=== PATIENT | female | born 1960 | race Two or more races ===

== ENCOUNTER 2020-03-23 20:25 | Inpatient (IN) | payer MEDICAID, OTHER ==
[~2020-03-23] VITALS: Ht 152.4 cm; Wt 131.5 kg
[2020-03-24] VITALS: BP 124/77
[2020-03-24 03:12] LABS: Basophils # (auto) 0 10 ^3/uL (0-0.2); Basophils % (auto) 0.3 % (0.0-2.0); Eosinophils # (auto) 0 10 ^3/uL (0-0.8); Eosinophils % (auto) 0.3 % (0.0-7.0); Hematocrit 39.1 % (36.0-46.0); Lymphocytes # (auto) 0.8 10 ^3/uL (0.4-5.4); Lymphocytes % (auto) 15.3 % (10.0-50.0); Mean Corpuscular Hemoglobin 27.3 pg (28.0-32.0); Mean Corpuscular Hgb Conc. 33.2 g/dL (32.0-36.0); Mean Corpuscular Volume 82.4 fL (80.0-100.0); Monocytes # (auto) 0.3 10 ^3/uL (0-1.3); Monocytes % (auto) 6.3 % (0.0-12.0); Neutrophils % (auto) 77.8 % (37.0-80.0); Nucleated Red Blood Cells % 0.1 %; Red Blood Cells 4.75 10^6/uL (4.0-5.20); Red Cell Distribution Width 16.6 % (11.8-14.3); White Blood Cell 5.1 10^3/uL (4.4-10.8)
[2020-03-24 03:29] LABS: Alanine Aminotransferase 56 U/L (13-56); Albumin 3.1 g/dL (3.4-5.0); Anion Gap 5 (5-15); Blood Urea Nitrogen 8 mg/dL (7-18); Calcium 8.1 mg/dL (8.5-10.1); Carbon Dioxide 28 mmol/L (21-32); Chloride 104 mmol/L (98-107); Glucose 155 mg/dL (74-106); Magnesium 2.1 mg/dL (1.6-2.6); Potassium 4.3 mmol/L (3.5-5.1); Sodium 137 mmol/L (136-145)
[2020-03-24 03:38] LABS: Alkaline Phosphatase 159 U/L (45-117); Aspartate Aminotransferase 76 U/L (15-37); BUN/Creatinine Ratio 12.7; Bilirubin, Total 0.8 mg/dL (0.2-1.0); GFR African American 125 mL/min; GFR Non-African American 103 mL/min; Lactate Dehydrogenase 440 U/L (84-246); Total Protein 7.4 g/dL (6.4-8.2)
[2020-03-24] MEDS ORDERED: AZITHROMYCIN 500MG/ 250ML 250 ML IV ONE (04:30)
[2020-03-24] MEDS ORDERED: DexAMETHasone INJECTION 10 MG in D5W 5% 50 ML IV ONE (04:30)
[2020-03-24] MEDS ORDERED: DexAMETHasone SOD PHOS 4 MG/1ML SDV INJ ONE (04:39)
[2020-03-24] MEDS ORDERED: HYDROcodone-ACET 5/325MG TAB PO PRN (08:30)
[2020-03-24] MEDS ORDERED: ONDANSETRON HCL 4 MG/2 ML VIAL IV PRN (08:30)
[2020-03-24] MEDS ORDERED: ACETAMINOPHEN 500 MG TAB PO PRN (08:30)
[2020-03-24] MEDS: SODIUM CHLORIDE 0.9% 1,000 ML IV SCH (08:30)
[2020-03-24] MEDS ORDERED: NITROGLYCERIN 0.4 MG SL TAB SL PRN (08:30)
[2020-03-24] MEDS ORDERED: MORPHINE SULFATE INJECTION 2 MG/ML SYRG IV PRN (08:30)
[2020-03-24] MEDS: MULTIPLE VITAMIN TAB PO SCH (10:00)
[2020-03-24] MEDS: DOXYCYCLINE 100MG/250ML 250 ML IV SCH ×2 (10:00→23:02)
[2020-03-24] MEDS: ZINC SULFATE 220mg CAP or TAB PO SCH (10:00)
[2020-03-24] MEDS: ASCORBIC ACID 1,000 MG TAB PO SCH (10:00)
[2020-03-24] MEDS: FAMOTIDINE (10MG/ML) 2ML VL IV SCH ×2 (10:00→23:02)
[2020-03-24] MEDS: ENOXAPARIN SOD 40 MG/0.4 ML SYRINGE SC SCH ×2 (10:00→23:02)
[2020-03-24] MEDS: CHOLECALCIFEROL (VITD3) 2,000 UNIT CAP/TAB PO SCH (10:00)
[2020-03-24] MEDS: BUDESONIDE (INHALATION) 180 MCG IH IN SCH ×3 (10:00→20:22)
[2020-03-24 11:24] LABS: Basophils # (auto) 0 10 ^3/uL (0-0.2); Eosinophils # (auto) 0 10 ^3/uL (0-0.8); Hematocrit 38.7 % (36.0-46.0); Hemoglobin 13.4 g/dL (12.2-16.2); Lymphocytes # (auto) 0.6 10 ^3/uL (0.4-5.4); Lymphocytes % (auto) 9.8 % (10.0-50.0); Mean Corpuscular Hemoglobin 28.3 pg (28.0-32.0); Mean Corpuscular Hgb Conc. 34.7 g/dL (32.0-36.0); Mean Corpuscular Volume 81.6 fL (80.0-100.0); Monocytes # (auto) 0.2 10 ^3/uL (0-1.3); Neutrophils # (auto) 5.3 10 ^3/uL (1.6-8.6); Neutrophils % (auto) 86.2 % (37.0-80.0); Nucleated Red Blood Cells % 0.1 %; Red Blood Cells 4.75 10^6/uL (4.0-5.20); Red Cell Distribution Width 16.3 % (11.8-14.3); White Blood Cell 6.1 10^3/uL (4.4-10.8)
[2020-03-24 11:32] LABS: Potassium 3.8 mmol/L (3.5-5.1)
[2020-03-24 11:39] LABS: Albumin 3.2 g/dL (3.4-5.0); BUN/Creatinine Ratio 10.5; Bilirubin, Total 0.7 mg/dL (0.2-1.0); Calcium 8.4 mg/dL (8.5-10.1); Magnesium 2.2 mg/dL (1.6-2.6); Total Protein 8.1 g/dL (6.4-8.2)
[2020-03-24] MEDS: ALBUTEROL SULF HFA 90MCG INH 200DOSE IN PRN ×2 (11:47→20:22)
[2020-03-24 12:45] VITALS: BP 126/70
[2020-03-24] MEDS ORDERED: LEVO75TA6 PO (13:02)
[2020-03-24 15:59] VITALS: BP 129/79
[2020-03-24] MEDS ORDERED: REMDESIVIR PER PHARMACY 0 ML IV SCH (20:45)
[2020-03-24 23:03] LABS: Urine Bacteria FEW /hpf (None Seen); Urine Blood 3+ /uL (Negative); Urine Specific Gravity 1.012 (1.001-1.035); Urine WBC 4 /hpf (0 - 5)
[2020-03-24] MEDS ORDERED: TEMAZEPAM 15 MG CAP PO ONE (23:30)
[2020-03-25] VITALS: BP 124/77
[2020-03-25] MEDS: SODIUM CHLORIDE 0.9% 1,000 ML IV SCH ×2 (01:10→10:05)
[2020-03-25] MEDS: LEVOTHYROXINE SODIUM 25 MCG TAB PO SCH (05:44)
[2020-03-25 08:00] VITALS: BP 123/65
[2020-03-25 08:27] LABS: Basophils # (auto) 0 10 ^3/uL (0-0.2); Basophils % (auto) 0.1 % (0.0-2.0); Eosinophils # (auto) 0 10 ^3/uL (0-0.8); Hematocrit 37.2 % (36.0-46.0); Hemoglobin 12.5 g/dL (12.2-16.2); Lymphocytes # (auto) 0.8 10 ^3/uL (0.4-5.4); Mean Corpuscular Hemoglobin 27.3 pg (28.0-32.0); Mean Corpuscular Hgb Conc. 33.6 g/dL (32.0-36.0); Mean Corpuscular Volume 81.5 fL (80.0-100.0); Monocytes # (auto) 0.5 10 ^3/uL (0-1.3); Monocytes % (auto) 7.3 % (0.0-12.0); Neutrophils # (auto) 5.2 10 ^3/uL (1.6-8.6); Neutrophils % (auto) 79.6 % (37.0-80.0); Red Blood Cells 4.56 10^6/uL (4.0-5.20); Red Cell Distribution Width 16.3 % (11.8-14.3); White Blood Cell 6.5 10^3/uL (4.4-10.8)
[2020-03-25] MEDS: BUDESONIDE (INHALATION) 180 MCG IH IN SCH ×2 (08:28→23:18)
[2020-03-25] MEDS: ALBUTEROL SULF HFA 90MCG INH 200DOSE IN PRN ×2 (08:28→23:18)
[2020-03-25 08:47] LABS: Calcium 8.5 mg/dL (8.5-10.1); Potassium 3.5 mmol/L (3.5-5.1)
[2020-03-25 08:58] LABS: Albumin 2.9 g/dL (3.4-5.0); BUN/Creatinine Ratio 16.4; Bilirubin, Total 0.8 mg/dL (0.2-1.0); Total Protein 7.7 g/dL (6.4-8.2)
[2020-03-25] MEDS: ASCORBIC ACID 1,000 MG TAB PO SCH (10:03)
[2020-03-25] MEDS: MULTIPLE VITAMIN TAB PO SCH (10:03)
[2020-03-25] MEDS: DOXYCYCLINE 100MG/250ML 250 ML IV SCH ×2 (10:03→22:30)
[2020-03-25] MEDS: ZINC SULFATE 220mg CAP or TAB PO SCH (10:03)
[2020-03-25] MEDS: DexAMETHasone SOD PHOS 10MG/1ML VIAL INJ IV SCH (10:03)
[2020-03-25] MEDS: FAMOTIDINE (10MG/ML) 2ML VL IV SCH ×2 (10:03→22:30)
[2020-03-25] MEDS: ENOXAPARIN SOD 40 MG/0.4 ML SYRINGE SC SCH ×2 (10:04→22:30)
[2020-03-25] MEDS: CHOLECALCIFEROL (VITD3) 2,000 UNIT CAP/TAB PO SCH (10:05)
[2020-03-25] MEDS ORDERED: REMDESIVIR 200 MG in NS 210ml LOADING DOSE ADULT IV ONE (15:00)
[2020-03-25] MEDS ORDERED: POTASSIUM CHL 10 Meq TABLET PO ONE (15:45)
[2020-03-25] MEDS ORDERED: FUROSEMIDE 40 MG/4 ML VIAL IV ONE (15:45)
[2020-03-25 16:30] VITALS: BP 107/65
[2020-03-25] MEDS: ERGOCALCIFEROL 50,000 UNIT(1.25MG) CAP PO SCH (18:00)
[2020-03-25] MEDS: FUROSEMIDE 40 MG/4 ML VIAL IV SCH (18:00)
[2020-03-25] MEDS: POTASSIUM CHL 10 Meq TABLET PO SCH (22:30)
[2020-03-26] VITALS: BP 127/77
[2020-03-26 00:09] VITALS: BP 127/77
[2020-03-26 06:33] LABS: Potassium 3.5 mmol/L (3.5-5.1)
[2020-03-26] MEDS: FUROSEMIDE 40 MG/4 ML VIAL IV SCH ×2 (06:35→18:37)
[2020-03-26] MEDS: LEVOTHYROXINE SODIUM 25 MCG TAB PO SCH (06:44)
[2020-03-26 06:53] LABS: BUN/Creatinine Ratio 19.2; Bilirubin, Total 0.8 mg/dL (0.2-1.0); CRP High Sensitivity 10.1 mg/dL (< 0.3); Calcium 8.6 mg/dL (8.5-10.1); Magnesium 2.3 mg/dL (1.6-2.6); Total Protein 7.9 g/dL (6.4-8.2)
[2020-03-26] MEDS: BUDESONIDE (INHALATION) 180 MCG IH IN SCH ×2 (07:02→08:42)
[2020-03-26 08:00] VITALS: BP 119/72
[2020-03-26] MEDS: ALBUTEROL SULF HFA 90MCG INH 200DOSE IN PRN (08:42)
[2020-03-26] MEDS: DexAMETHasone SOD PHOS 10MG/1ML VIAL INJ IV SCH (09:45)
[2020-03-26] MEDS: FAMOTIDINE (10MG/ML) 2ML VL IV SCH ×2 (09:45→20:42)
[2020-03-26] MEDS: CHOLECALCIFEROL (VITD3) 2,000 UNIT CAP/TAB PO SCH (09:45)
[2020-03-26] MEDS: POTASSIUM CHL 10 Meq TABLET PO SCH ×2 (09:45→20:42)
[2020-03-26] MEDS: ZINC SULFATE 220mg CAP or TAB PO SCH (09:45)
[2020-03-26] MEDS: ASCORBIC ACID 1,000 MG TAB PO SCH (09:46)
[2020-03-26] MEDS: MULTIPLE VITAMIN TAB PO SCH (09:46)
[2020-03-26] MEDS: DOXYCYCLINE 100MG/250ML 250 ML IV SCH ×2 (09:46→20:43)
[2020-03-26] MEDS: ENOXAPARIN SOD 40 MG/0.4 ML SYRINGE SC SCH ×2 (09:47→20:42)
[2020-03-26] MEDS: REMDESIVIR 100mg 100 MG in SODIUM CHL 0.9% 230 ML IV SCH (15:03)
[2020-03-26 16:00] VITALS: BP 130/77
[2020-03-26] MEDS ORDERED: methylPREDNISolone SOD SUCC 40 MG/ML VL IV ONE (16:30)
[2020-03-26] MEDS ORDERED: ACETAMINOPHEN 650 mg PER 20.3 mL UD PO ONE (16:30)
[2020-03-26] MEDS ORDERED: diphenhdrAMINE HCL 50 MG/1 ML VL IV ONE (16:30)
[2020-03-26] MEDS ORDERED: TOCILIZUMAB 400 MG in SODIUM CHL 0.9% 80 ML IV ONE (17:00)
[2020-03-27 00:06] VITALS: BP 140/73
[2020-03-27] MEDS: FUROSEMIDE 40 MG/4 ML VIAL IV SCH ×3 (05:23→17:23)
[2020-03-27] MEDS: LEVOTHYROXINE SODIUM 25 MCG TAB PO SCH (05:24)
[2020-03-27] MEDS: ALBUTEROL SULF HFA 90MCG INH 200DOSE IN PRN ×2 (07:02→20:26)
[2020-03-27] MEDS: BUDESONIDE (INHALATION) 180 MCG IH IN SCH ×2 (07:02→20:26)
[2020-03-27 07:59] LABS: Potassium 3.5 mmol/L (3.5-5.1)
[2020-03-27 08:00] VITALS: BP 116/64
[2020-03-27 08:06] LABS: Albumin 3.1 g/dL (3.4-5.0); BUN/Creatinine Ratio 19.7; Calcium 8.4 mg/dL (8.5-10.1); Total Protein 7.8 g/dL (6.4-8.2)
[2020-03-27] MEDS: FAMOTIDINE (10MG/ML) 2ML VL IV SCH ×2 (09:03→20:52)
[2020-03-27] MEDS: ZINC SULFATE 220mg CAP or TAB PO SCH (09:04)
[2020-03-27] MEDS: POTASSIUM CHL 10 Meq TABLET PO SCH ×2 (09:04→20:52)
[2020-03-27] MEDS: ASCORBIC ACID 1,000 MG TAB PO SCH (09:04)
[2020-03-27] MEDS: MULTIPLE VITAMIN TAB PO SCH (09:04)
[2020-03-27] MEDS: CHOLECALCIFEROL (VITD3) 2,000 UNIT CAP/TAB PO SCH (09:04)
[2020-03-27] MEDS: ENOXAPARIN SOD 40 MG/0.4 ML SYRINGE SC SCH ×2 (09:04→20:53)
[2020-03-27] MEDS: DOXYCYCLINE 100MG/250ML 250 ML IV SCH ×2 (09:32→21:16)
[2020-03-27] MEDS ORDERED: diphenhdrAMINE HCL 50 MG/1 ML VL IV ONE (11:30)
[2020-03-27] MEDS ORDERED: ACETAMINOPHEN 650 mg PER 20.3 mL UD PO ONE (11:30)
[2020-03-27] MEDS ORDERED: methylPREDNISolone SOD SUCC 40 MG/ML VL IV ONE (11:30)
[2020-03-27] MEDS ORDERED: TOCILIZUMAB 400 MG in SODIUM CHL 0.9% 80 ML IV ONE (12:00)
[2020-03-27] MEDS ORDERED: IVERMECTIN 3 MG TAB PO SCH (15:00)
[2020-03-27] MEDS: REMDESIVIR 100mg 100 MG in SODIUM CHL 0.9% 230 ML IV SCH (15:17)
[2020-03-27 16:00] VITALS: BP 147/81
[2020-03-27] MEDS: IVERMECTIN 3 MG TAB PO SCH (17:22)
[2020-03-28] VITALS (7 sets, daily range): BP systolic 109–131; BP diastolic 62–90
[2020-03-28] MEDS: FUROSEMIDE 40 MG/4 ML VIAL IV SCH ×2 (06:20→17:36)
[2020-03-28] MEDS: LEVOTHYROXINE SODIUM 25 MCG TAB PO SCH (06:23)
[2020-03-28] MEDS: IVERMECTIN 3 MG TAB PO SCH (06:25)
[2020-03-28] MEDS: ALBUTEROL SULF HFA 90MCG INH 200DOSE IN PRN ×2 (06:42→22:16)
[2020-03-28] MEDS: BUDESONIDE (INHALATION) 180 MCG IH IN SCH ×2 (06:42→22:16)
[2020-03-28 08:06] LABS: Basophils # (auto) 0 10 ^3/uL (0-0.2); Basophils % (auto) 0.1 % (0.0-2.0); Eosinophils # (auto) 0 10 ^3/uL (0-0.8); Eosinophils % (auto) 0.2 % (0.0-7.0); Hematocrit 39.9 % (36.0-46.0); Hemoglobin 13.4 g/dL (12.2-16.2); Lymphocytes # (auto) 1.4 10 ^3/uL (0.4-5.4); Lymphocytes % (auto) 25.8 % (10.0-50.0); Mean Corpuscular Hemoglobin 27.3 pg (28.0-32.0); Mean Corpuscular Hgb Conc. 33.5 g/dL (32.0-36.0); Mean Corpuscular Volume 81.6 fL (80.0-100.0); Monocytes # (auto) 0.6 10 ^3/uL (0-1.3); Monocytes % (auto) 10.1 % (0.0-12.0); Neutrophils # (auto) 3.6 10 ^3/uL (1.6-8.6); Neutrophils % (auto) 63.8 % (37.0-80.0); Nucleated Red Blood Cells % 0.2 %; Red Blood Cells 4.88 10^6/uL (4.0-5.20); Red Cell Distribution Width 16.1 % (11.8-14.3); White Blood Cell 5.6 10^3/uL (4.4-10.8)
[2020-03-28 08:12] LABS: Albumin 3.2 g/dL (3.4-5.0); Calcium 8.4 mg/dL (8.5-10.1); Magnesium 2.2 mg/dL (1.6-2.6)
[2020-03-28 08:21] LABS: BUN/Creatinine Ratio 21.3; Bilirubin, Total 1.4 mg/dL (0.2-1.0); Total Protein 7.9 g/dL (6.4-8.2)
[2020-03-28 08:37] LABS: Potassium 2.9 mmol/L (3.5-5.1)
[2020-03-28] MEDS: MULTIPLE VITAMIN TAB PO SCH (10:00)
[2020-03-28] MEDS: FAMOTIDINE (10MG/ML) 2ML VL IV SCH ×2 (10:51→21:45)
[2020-03-28] MEDS: DexAMETHasone SOD PHOS 10MG/1ML VIAL INJ IV SCH (10:51)
[2020-03-28] MEDS: POTASSIUM CHL 10 Meq TABLET PO SCH ×2 (10:52→21:46)
[2020-03-28] MEDS: DOXYCYCLINE 100MG/250ML 250 ML IV SCH ×2 (10:52→21:45)
[2020-03-28] MEDS: ZINC SULFATE 220mg CAP or TAB PO SCH (10:52)
[2020-03-28] MEDS: ASCORBIC ACID 1,000 MG TAB PO SCH (10:53)
[2020-03-28] MEDS: ENOXAPARIN SOD 40 MG/0.4 ML SYRINGE SC SCH ×2 (10:54→21:46)
[2020-03-28] MEDS: CHOLECALCIFEROL (VITD3) 2,000 UNIT CAP/TAB PO SCH (10:54)
[2020-03-28] MEDS ORDERED: POTASSIUM CHL 20 Meq TABLET PO ONE (12:00)
[2020-03-28] MEDS: REMDESIVIR 100mg 100 MG in SODIUM CHL 0.9% 230 ML IV SCH (15:51)
[2020-03-29 00:27] VITALS: BP 122/77
[2020-03-29] MEDS: FUROSEMIDE 40 MG/4 ML VIAL IV SCH ×2 (06:24→17:58)
[2020-03-29] MEDS: IVERMECTIN 3 MG TAB PO SCH (06:32)
[2020-03-29] MEDS: LEVOTHYROXINE SODIUM 25 MCG TAB PO SCH (06:32)
[2020-03-29] MEDS: ALBUTEROL SULF HFA 90MCG INH 200DOSE IN PRN ×2 (07:40→20:44)
[2020-03-29] MEDS: BUDESONIDE (INHALATION) 180 MCG IH IN SCH ×2 (07:40→19:53)
[2020-03-29 08:00] VITALS: BP 121/69
[2020-03-29 09:00] LABS: Potassium 3.2 mmol/L (3.5-5.1)
[2020-03-29 09:18] LABS: Albumin 3.2 g/dL (3.4-5.0); BUN/Creatinine Ratio 24.7; Bilirubin, Direct 0.4 mg/dL (0-0.2); CRP High Sensitivity 1.33 mg/dL (< 0.3); Calcium 8.2 mg/dL (8.5-10.1); Total Protein 7.7 g/dL (6.4-8.2)
[2020-03-29] MEDS: FAMOTIDINE (10MG/ML) 2ML VL IV SCH ×2 (12:25→22:00)
[2020-03-29] MEDS: POTASSIUM CHL 10 Meq TABLET PO SCH ×2 (12:25→22:00)
[2020-03-29] MEDS: ZINC SULFATE 220mg CAP or TAB PO SCH (12:26)
[2020-03-29] MEDS: ENOXAPARIN SOD 40 MG/0.4 ML SYRINGE SC SCH ×2 (12:26→22:00)
[2020-03-29] MEDS: MULTIPLE VITAMIN TAB PO SCH (12:26)
[2020-03-29] MEDS: CHOLECALCIFEROL (VITD3) 2,000 UNIT CAP/TAB PO SCH (12:26)
[2020-03-29] MEDS: DexAMETHasone SOD PHOS 10MG/1ML VIAL INJ IV SCH (12:27)
[2020-03-29] MEDS: ASCORBIC ACID 1,000 MG TAB PO SCH (12:27)
[2020-03-29] MEDS ORDERED: POTASSIUM CHL 20 Meq TABLET PO ONE (14:15)
[2020-03-29 16:00] VITALS: BP 119/78
[2020-03-29] MEDS: REMDESIVIR 100mg 100 MG in SODIUM CHL 0.9% 230 ML IV SCH (16:02)
[2020-03-29] MEDS: DOXYCYCLINE 100 MG TAB/CAP PO SCH (22:39)
[2020-03-29] MEDS: DexAMETHasone SOD PHOS 4 MG/1ML SDV INJ IV SCH (22:40)
[2020-03-30] VITALS: BP 122/88
[2020-03-30 05:59] LABS: Albumin 3.1 g/dL (3.4-5.0); Potassium 3.7 mmol/L (3.5-5.1)
[2020-03-30 06:03] LABS: Bilirubin, Direct 0.3 mg/dL (0-0.2); Bilirubin, Total 0.8 mg/dL (0.2-1.0); Total Protein 7.4 g/dL (6.4-8.2)
[2020-03-30] MEDS: FUROSEMIDE 40 MG/4 ML VIAL IV SCH ×2 (06:05→19:25)
[2020-03-30] MEDS: ALBUTEROL SULF HFA 90MCG INH 200DOSE IN PRN ×2 (07:00→19:17)
[2020-03-30] MEDS: BUDESONIDE (INHALATION) 180 MCG IH IN SCH ×2 (07:00→19:17)
[2020-03-30] MEDS: LEVOTHYROXINE SODIUM 25 MCG TAB PO SCH (07:03)
[2020-03-30 08:00] VITALS: BP 113/75
[2020-03-30] MEDS: ZINC SULFATE 220mg CAP or TAB PO SCH (10:36)
[2020-03-30] MEDS: POTASSIUM CHL 10 Meq TABLET PO SCH ×2 (10:36→21:10)
[2020-03-30] MEDS: DexAMETHasone SOD PHOS 4 MG/1ML SDV INJ IV SCH ×2 (10:36→21:10)
[2020-03-30] MEDS: FAMOTIDINE (10MG/ML) 2ML VL IV SCH ×2 (10:36→21:10)
[2020-03-30] MEDS: MULTIPLE VITAMIN TAB PO SCH (10:37)
[2020-03-30] MEDS: CHOLECALCIFEROL (VITD3) 2,000 UNIT CAP/TAB PO SCH (10:37)
[2020-03-30] MEDS: ASCORBIC ACID 1,000 MG TAB PO SCH (10:37)
[2020-03-30] MEDS: DOXYCYCLINE 100 MG TAB/CAP PO SCH ×2 (10:37→21:10)
[2020-03-30] MEDS: ENOXAPARIN SOD 40 MG/0.4 ML SYRINGE SC SCH ×2 (10:37→21:11)
[2020-03-30 16:00] VITALS: BP 128/73
[2020-03-31] VITALS: BP 117/79
[2020-03-31] MEDS: FUROSEMIDE 40 MG/4 ML VIAL IV SCH ×2 (05:32→17:33)
[2020-03-31] MEDS: LEVOTHYROXINE SODIUM 25 MCG TAB PO SCH (06:18)
[2020-03-31] MEDS: ALBUTEROL SULF HFA 90MCG INH 200DOSE IN PRN ×2 (07:38→21:24)
[2020-03-31] MEDS: BUDESONIDE (INHALATION) 180 MCG IH IN SCH ×2 (07:38→21:24)
[2020-03-31 08:00] VITALS: BP 122/66
[2020-03-31] MEDS: DexAMETHasone SOD PHOS 4 MG/1ML SDV INJ IV SCH ×2 (10:50→21:10)
[2020-03-31] MEDS: CHOLECALCIFEROL (VITD3) 2,000 UNIT CAP/TAB PO SCH (10:51)
[2020-03-31] MEDS: ENOXAPARIN SOD 40 MG/0.4 ML SYRINGE SC SCH ×2 (10:51→21:09)
[2020-03-31] MEDS: MULTIPLE VITAMIN TAB PO SCH (10:51)
[2020-03-31] MEDS: POTASSIUM CHL 10 Meq TABLET PO SCH ×2 (10:51→21:09)
[2020-03-31] MEDS: ASCORBIC ACID 1,000 MG TAB PO SCH (10:51)
[2020-03-31] MEDS: DOXYCYCLINE 100 MG TAB/CAP PO SCH ×2 (10:51→21:08)
[2020-03-31] MEDS: FAMOTIDINE (10MG/ML) 2ML VL IV SCH ×2 (10:51→21:09)
[2020-03-31] MEDS: ZINC SULFATE 220mg CAP or TAB PO SCH (10:51)
[2020-03-31 16:00] VITALS: BP 116/77
[2020-04-01 00:25] VITALS: BP 123/69
[2020-04-01] MEDS: FUROSEMIDE 40 MG/4 ML VIAL IV SCH ×2 (06:00→18:57)
[2020-04-01] MEDS: LEVOTHYROXINE SODIUM 25 MCG TAB PO SCH (06:18)
[2020-04-01] MEDS: BUDESONIDE (INHALATION) 180 MCG IH IN SCH ×2 (06:40→22:00)
[2020-04-01] MEDS: ALBUTEROL SULF HFA 90MCG INH 200DOSE IN PRN (06:40)
[2020-04-01] MEDS: DexAMETHasone SOD PHOS 4 MG/1ML SDV INJ IV SCH ×2 (08:58→21:31)
[2020-04-01] MEDS: MULTIPLE VITAMIN TAB PO SCH (08:58)
[2020-04-01] MEDS: ZINC SULFATE 220mg CAP or TAB PO SCH (08:58)
[2020-04-01] MEDS: POTASSIUM CHL 10 Meq TABLET PO SCH ×2 (08:58→21:30)
[2020-04-01] MEDS: ASCORBIC ACID 1,000 MG TAB PO SCH (08:58)
[2020-04-01] MEDS: DOXYCYCLINE 100 MG TAB/CAP PO SCH ×2 (08:58→21:29)
[2020-04-01] MEDS: CHOLECALCIFEROL (VITD3) 2,000 UNIT CAP/TAB PO SCH (08:58)
[2020-04-01] MEDS: ENOXAPARIN SOD 40 MG/0.4 ML SYRINGE SC SCH ×2 (08:59→21:30)
[2020-04-01] MEDS: FAMOTIDINE (10MG/ML) 2ML VL IV SCH ×2 (11:27→21:30)
[2020-04-01] MEDS ORDERED: METF-371 PO (13:08)
[2020-04-01] MEDS ORDERED: CHOL1CAP47 PO (13:08)
[2020-04-01] MEDS ORDERED: ZINC220T6 PO (13:08)
[2020-04-01] MEDS ORDERED: BUDE2SUS3 IN (13:08)
[2020-04-01] MEDS ORDERED: ASPI-378 PO (13:08)
[2020-04-01] MEDS ORDERED: DOXY-286 PO (13:08)
[2020-04-01] MEDS ORDERED: ASCO10003 PO (13:08)
[2020-04-01] MEDS ORDERED: ALBUAER3 IN (13:08)
[2020-04-01] MEDS ORDERED: DEX4T PO (13:08)
[2020-04-01] MEDS ORDERED: FAMO20TA10 PO (13:08)
[2020-04-01 16:00] VITALS: BP 116/66
[2020-04-01 16:33] VITALS: BP 116/66
[2020-04-01 16:58] VITALS: BP 116/66
[2020-04-01] MEDS: ERGOCALCIFEROL 50,000 UNIT(1.25MG) CAP PO SCH (19:28)
[2020-04-02] VITALS: BP 132/82
[2020-04-02] MEDS: FUROSEMIDE 40 MG/4 ML VIAL IV SCH ×2 (06:10→18:00)
[2020-04-02] MEDS: LEVOTHYROXINE SODIUM 25 MCG TAB PO SCH (06:10)
[2020-04-02 08:00] VITALS: BP 128/64
[2020-04-02] MEDS: ALBUTEROL SULF HFA 90MCG INH 200DOSE IN PRN (08:05)
[2020-04-02] MEDS: BUDESONIDE (INHALATION) 180 MCG IH IN SCH (08:05)
[2020-04-02] MEDS: DexAMETHasone SOD PHOS 4 MG/1ML SDV INJ IV SCH (08:43)
[2020-04-02] MEDS: POTASSIUM CHL 10 Meq TABLET PO SCH (08:44)
[2020-04-02] MEDS: ZINC SULFATE 220mg CAP or TAB PO SCH (08:44)
[2020-04-02] MEDS: DOXYCYCLINE 100 MG TAB/CAP PO SCH (08:44)
[2020-04-02] MEDS: MULTIPLE VITAMIN TAB PO SCH (08:44)
[2020-04-02] MEDS: FAMOTIDINE (10MG/ML) 2ML VL IV SCH (08:44)
[2020-04-02] MEDS: ENOXAPARIN SOD 40 MG/0.4 ML SYRINGE SC SCH (08:45)
[2020-04-02] MEDS: ASCORBIC ACID 1,000 MG TAB PO SCH (08:45)
[2020-04-02 16:00] VITALS: BP 122/81
== END 2020-04-02 20:27 | disposition home or self-care (01) | DRG 720 ==
LOC: EDBD 20:25 → ER 20:28 → OVERFLOW 20:29 → TELE-WESTW 03-24 12:08
PROVIDERS: ADMIT Nurse Practitioner Family; ATTEND Internal Medicine
PROC: XW033E5 Introduction of Remdesivir Anti-infective into Peripheral Vein, Percutaneous Approach, New Technology Group 5 (ICD-10-PCS; 2020-03-26)
PROC: XW033H5 Introduction of Tocilizumab into Peripheral Vein, Percutaneous Approach, New Technology Group 5 (ICD-10-PCS; 2020-03-26)
PROC: XW13325 Transfusion of Convalescent Plasma (Nonautologous) into Peripheral Vein, Percutaneous Approach, New Technology Group 5 (ICD-10-PCS; principal; 2020-03-28)
DX: A41.89 Other specified sepsis (principal); U07.1 COVID-19; J12.82 Pneumonia due to coronavirus disease 2019; J96.01 Acute respiratory failure with hypoxia; E66.01 Morbid (severe) obesity due to excess calories; E03.9 Hypothyroidism, unspecified; D68.59 Other primary thrombophilia; E55.9 Vitamin D deficiency, unspecified; E87.6 Hypokalemia; E11.65 Type 2 diabetes mellitus with hyperglycemia; Z68.42 Body mass index [BMI] 45.0-49.9, adult; Z79.51 Long term (current) use of inhaled steroids; Z80.0 Family history of malignant neoplasm of digestive organs; Z90.49 Acquired absence of other specified parts of digestive tract
CPT/HCPCS: 36415; 36600; 71045; 76705; 80053; 80076; 81001; 82306; 82728; 82805; 82962; 83036; 83605; 83615; 83735; 83880; 84132; 84443; 84484; 85025; 85379; 86141; 86850; 86900; 86901; 87040; 87426; 87493; 93005; 94640; 96365; 96366; 96367; 96368; 96375; 97110; 97116; 97530; G0378; J1100; J2405; J3490; J7060

== ENCOUNTER 2023-01-05 16:52 | Emergency (ER) | payer MEDICAID ==
[~2023-01-05] VITALS: Ht 152.4 cm; Wt 115.8 kg
[~2023-01-05 16:52] MED LIST: ALBUAER3 IN; ASCO10003 PO; ASPI-378 PO; BUDE2SUS3 IN; CHOL1CAP47 PO; DEX4T PO; DOXY-286 PO; FAMO20TA10 PO; LEVO75TA6 PO; METF-371 PO; ZINC220T6 PO
[2023-01-05 18:00] LABS: Basophils # (auto) 0 10 ^3/uL (0-0.2); Basophils % (auto) 0.4 % (0.0-2.0); Eosinophils # (auto) 0.1 10 ^3/uL (0-0.8); Hematocrit 40.1 % (36.0-46.0); Hemoglobin 13.2 g/dL (12.2-16.2); Lymphocytes % (auto) 39.5 % (10.0-50.0); Mean Corpuscular Hemoglobin 28.2 pg (28.0-32.0); Mean Corpuscular Hgb Conc. 32.9 g/dL (32.0-36.0); Mean Corpuscular Volume 85.6 fL (80.0-100.0); Monocytes # (auto) 0.4 10 ^3/uL (0-1.3); Monocytes % (auto) 8.2 % (0.0-12.0); Neutrophils # (auto) 2.5 10 ^3/uL (1.6-8.6); Neutrophils % (auto) 49.9 % (37.0-80.0); Nucleated Red Blood Cells % 0.6 %; Red Blood Cells 4.68 10^6/uL (4.0-5.20); Red Cell Distribution Width 14.8 % (11.8-14.3); White Blood Cell 4.9 10^3/uL (4.4-10.8)
[2023-01-05 18:05] LABS: Alanine Aminotransferase 54 U/L (7-40); Albumin 4.1 g/dL (3.2-4.8); Alkaline Phosphatase 127 U/L (46-116); Anion Gap 9 (5-15); Aspartate Aminotransferase 68 U/L (13-40); Calcium 8.9 mg/dL (8.7-10.4); Carbon Dioxide 22 mmol/L (20-30); Chloride 107 mmol/L (98-107); Glucose 158 mg/dL (74-106); Lipase 51 U/L (12-53); Potassium 3.5 mmol/L (3.5-5.1); Sodium 138 mmol/L (136-145)
[2023-01-05 18:06] LABS: Bilirubin, Total 0.9 mg/dL (0.2-1.0); Total Protein 7.4 g/dL (5.7-8.2)
[2023-01-05 18:21] LABS: BUN/Creatinine Ratio 8.5 (10.0-20.0); Blood Urea Nitrogen < 5 mg/dL (9-23)
[2023-01-05 18:24] LABS: Urine Amorphous Crystal FEW /hpf (None Seen); Urine Bacteria FEW /hpf (None Seen); Urine Blood Negative /uL (Negative); Urine Clarity CLOUDY (Clear); Urine Color Yellow (Yellow); Urine Protein, UAD TRACE (Negative); Urine Urobilinogen Normal (Negative); Urine WBC 110 /hpf (0 - 5); Urine WBC Clumps PRESENT /hpf (None Seen); Urine pH 5.5 (5.0-8.0)
[2023-01-05] MEDS ORDERED: ONDANSETRON HCL 4 MG/2 ML VIAL IV ONE (19:45)
[2023-01-05] MEDS ORDERED: SODIUM CHLORIDE 0.9% 1,000 ML IV ONE (19:45)
[2023-01-05] MEDS ORDERED: MORPHINE SULFATE 4 MG/ML SYR/VIAL IV ONE (19:45)
[2023-01-05] MEDS ORDERED: IOHEXOL 350 MG/ML 100ML IJ ONE (21:35)
[2023-01-05] MEDS ORDERED: LOPE1TAB9 PO (21:36)
[2023-01-05] MEDS ORDERED: DICY10CA PO (21:36)
[2023-01-05] MEDS ORDERED: ZOFR4T PO (21:36)
[2023-01-05 21:45] VITALS: TEMP 98.9; O2SAT 97
[2023-01-05 21:47] VITALS: BP 141/53; PULSE 63; RESP 19
== END 2023-01-05 21:46 | disposition home or self-care (01) ==
LOC: ER 16:52
DX: K52.9 Noninfective gastroenteritis and colitis, unspecified (principal); K29.70 Gastritis, unspecified, without bleeding; I10 Essential (primary) hypertension; E11.9 Type 2 diabetes mellitus without complications; Z85.9 Personal history of malignant neoplasm, unspecified; Z90.49 Acquired absence of other specified parts of digestive tract; Z79.84 Long term (current) use of oral hypoglycemic drugs; Z79.82 Long term (current) use of aspirin; Z79.899 Other long term (current) drug therapy
CPT/HCPCS: 36415; 74177; 80053; 81001; 83690; 85025; 93005; 96361; 96374; 96375; 99285; J2270; J2405; J7030; Q9967